=== PATIENT | female | born 1980 | race Caucasian/White ===

== ENCOUNTER 2018-01-03 08:15 | Outpatient (CLI) | payer OTHER | END 2018-01-03 08:16 | disposition home or self-care (01) | LOC: BICMAMMO 08:15 | PROVIDERS: ATTEND Family Medicine | DX: N63.20 Unspecified lump in the left breast, unspecified quadrant (principal); N64.4 Mastodynia | CPT/HCPCS: 77066; G0279 ==

== ENCOUNTER 2019-02-17 19:51 | Observation (INO) | payer SELFPAY ==
[~2019-02-17 19:51] MED LIST: ISOVUE-370 76%-LOCM 1 ML ONE
[2019-02-17 20:13] LABS: #Basophils 0.1 thou/uL (0.0-0.2); #Eosinphils 0.2 thou/uL (0.0-0.7); #Lymphocytes 2.8 thou/uL (1.20-3.40); #Monocytes 1.1 thou/uL (0.11-0.59); #Neutrophils 11.8 thou/uL (1.40-6.50); %Basophils 0.5 % (0.0-1.0); %Lymphocytes 17.6 % (21.0-51.0); %Monocytes 6.6 % (0.0-10.0); %Neutrophils 74.3 % (42.0-75.0); Hemoglobin 14.1 g/dL (12.0-16.0); Mean Corpuscular HGB CONC 34.5 g/dL (32.0-36.0); Mean Corpuscular Hemoglobin 30.9 pg (27.0-31.0); Mean Corpuscular Volume 89.7 fL (78.0-98.0); Mean Platelet Volume 7.1 fL (7.4-10.4); Platelet Count 315 thou/uL (130-400); RBC Distribution Width 12.9 % (11.5-14.5); Red Blood Cell (RBC) Count 4.56 mill/uL (4.20-5.40); White Blood Cell (WBC) Count 15.9 thou/uL (4.8-10.8)
[2019-02-17 20:33] LABS: ALT (SGPT) 32 U/L (8-55); AST (SGOT) 20 U/L (5-34); Albumin 4.2 g/dL (3.5-5.0); Alkaline Phosphatase 73 U/L (40-150); Anion Gap 11 mmol/L (10-20); BUN (Urea Nitrogen) 5 mg/dL (7.0-18.7); Bilirubin, Total 1.3 mg/dL (0.2-1.2); Calc. Creatinine Clearance 0 mL/min (70-130); Calcium 9.3 mg/dL (7.8-10.44); Carbon Dioxide 28 mmol/L (22-29); Chloride 103 mmol/L (98-107); Estimated GFR-MDRD Greater than 90; Glucose 101 mg/dL (70-105); Lipase 12 U/L (8-78); Potassium 3.9 mmol/L (3.5-5.1); Protein, Total 7.2 g/dL (6.0-8.3); Sodium 138 mmol/L (136-145)
[2019-02-17 21:14] LABS: Bilirubin Negative (Negative); Blood, Urine Negative (Negative); Clarity CLEAR (Clear); Glucose, Urine (Dipstick) Negative (Negative); Leukocyte Small (Negative); Nitrite Negative (Negative); Protein, Urine (Dipstick) Trace mg/dL (Neg-Trace); Specific Gravity, Urine 1.024 (1.002-1.036); pH, Urine 7.5 (5.0-9.0)
[2019-02-17 21:15] LABS: Bacteria/HPF None Seen HPF (None Seen); Hyaline Casts/LPF 4-6 HYALINE CAST LPF (0-3 Hyaline); Pathc Cast-AUWi Flag 1.08 (0-2.49)
[2019-02-17 21:17] LABS: Pregnancy Test - Urine (BHCG) Negative (Negative); Pregu Control Background? CLEAR/WHITE (CLR/WHITE); Pregu Control Bar Appear? YES (CONTROL BAR); Specific Gravity 1.024 (1.002-1.036)
[2019-02-17] MEDS ORDERED: Ondansetron PF 4 MG/2 ML Vial ONE (21:19)
[2019-02-17] MEDS ORDERED: Ketorolac Tromethamine 30 MG/ML VIAL ONE (21:19)
--- NOTE | 2019-02-17 22:02 | CT ---
FCT abdomen and pelvis with IV contrast. Oral contrast was not administered. INDICATIONS: Abdominal pain COMPARISON: CT scan abdomen 2009 FINDINGS: Lung bases are clear Liver, spleen, and pancreas appear unremarkable. Stomach and duodenum appear unremarkable. Adrenal glands appear normal. Kidneys appear unremarkable. Collecting structures and urinary bladder appear unremarkable. Small bowel loops are normal caliber and exhibit normal fold pattern. The appendix is mildly enlarged measured at 9 mm. Minimal surrounding inflammatory change. Colon is unremarkable. Aorta is normal caliber. Nonspecific mesenteric lymph nodes are seen in the right lower quadrant. These are measured at 1.0 cm . Uterus is mildly prominent. The endometrial stripe is prominent. There is evidence of an involuting c yst in the right ovary. An adjacent right ovarian cyst measures 2.5 cm. Subcutaneous tissues, abdominal wall, and muscular structures appear unremarkable. Osseous structures appear unremarkable. IMPRESSION: 1. Mid appendix is mildly dilated. There are some minimal inflammatory haziness present. Recommend cl inical correlation as early appendicitis cannot be excluded. 2. Right ovarian cyst. There is a peripherally enhancing involuting cyst in the right ovary also note d.
[2019-02-17] MEDS ORDERED: Piperacillin/Tazobactam 3.375 GM VIAL ONE ×2 (22:14→22:23)
[2019-02-18] MEDS ORDERED: Morphine 4 MG/ML VIAL SLOW IVP PRN (01:20)
[2019-02-18] MEDS: Dextrose 5 %-0.45 % NaCl 1,000 ML IV SCH ×2 (01:38→15:02)
[2019-02-18 02:25] VITALS: BMI 31.8
[2019-02-18] MEDS ORDERED: Ondansetron PF 4 MG/2 ML Vial IVP PRN (04:12)
[2019-02-18] MEDS ORDERED: Ondansetron ODT 4 MG TAB SL PRN (04:12)
[2019-02-18] MEDS ORDERED: Piperacillin/Tazobactam 3.375 GM in Sodium Chloride 0.9% 100 ML IVPB SCH (06:00)
[2019-02-18] MEDS ORDERED: Bupivacaine/Epinephrine 0.25% 30 ML VIAL ONE (07:06)
[2019-02-18] MEDS ORDERED: Fentanyl 100 MCG/2 ML VIAL ONE (08:07)
[2019-02-18] MEDS ORDERED: Lidocaine 1% PF 5 ML VIAL ONE (09:04)
[2019-02-18] MEDS ORDERED: PROPOFOL 200 MG/20 ML VIAL ONE (09:04)
[2019-02-18] MEDS ORDERED: Rocuronium Bromide 10 MG/ML (10ML VIAL) ONE (09:04)
[2019-02-18] MEDS ORDERED: Glycopyrrolate 0.2 MG/ML 5 ML SYRINGE ONE (09:04)
[2019-02-18] MEDS ORDERED: Ketorolac Tromethamine 30 MG/ML VIAL ONE (09:04)
[2019-02-18] MEDS ORDERED: Ondansetron PF 4 MG/2 ML Vial ONE (09:04)
[2019-02-18] MEDS ORDERED: Acetaminophen 500 MG TAB PO PRN (09:43)
[2019-02-18] MEDS ORDERED: traMADol HCl 50 MG TAB PO PRN ×2 (09:43)
[2019-02-18] MEDS ORDERED: Ibuprofen 600 MG TAB PO PRN (09:43)
--- NOTE | 2019-02-18 10:10 | HP ---
HISTORY OF PRESENT ILLNESS: Alena Frances is a 38-year-old female, 2 days of abdominal pain in lower midline localizing right lower quadrant suffered later that day and nausea followed by vomiting and subsequent loose stools. Her pain worsened. She suffered anorexia, increased pain with movement. She presented to the hospital, was evaluated, noted to have a white count of 15, hemoglobin 14, normal comprehensive metabolic profile except a mildly elevated bilirubin 1.3. She underwent a CAT scan of the abdomen and pelvis revealing changes consistent with appendicitis. She was hospitalized overnight, given intravenous antibiotics. She did have a small ovarian cyst right. ALLERGIES: NONE. SOCIAL HISTORY: Tobacco, none. Alcohol, none. MEDICATIONS: Vitamins. PAST SURGICAL HISTORY: C-sections, tubal ligation, laparoscopic cholecystectomy. REVIEW OF SYSTEMS: Noncontributory. [employer]PER[employer]OR [employer] FABRICATION HISTORY: 3, para 3. Her is with her. PHYSICAL EXAMINATION: VITAL SIGNS: Height 5 feet 3 inches, weight 180 pounds, 31 BMI, temperature 98.5 degrees, heart rate 78, blood pressure 113/78. HEAD, EYES, EARS, NOSE, AND THROAT: Unremarkable. LUNGS: Clear to auscultation. CARDIAC: Regular rhythm without murmur or gallop. ABDOMEN: Soft, tenderness in right lower quadrant. No guarding or rebound. EXTREMITIES: Unremarkable. LYMPHATIC: No lymphadenopathy at neck, axillae, or groins. NEUROLOGIC: Neurologically intact. No neurological deficit. SKIN: Turgor normal. ASSESSMENT AND PLAN: Acute appendicitis. Recommend laparoscopic video appendectomy. Risks of infection, bleeding, and reoperation discussed. She consents. Job ID: [id number]
[2019-02-18] MEDS ORDERED: Promethazine HCl 25 MG/ML VIAL SLOW IVP PRN (10:56)
[2019-02-18] MEDS ORDERED: Promethazine HCl 25 MG/ML VIAL IM PRN (10:56)
[2019-02-18] MEDS ORDERED: Ondansetron HCl/PF 4 MG/2 ML Vial IVP PRN (10:56)
--- NOTE | 2019-02-18 12:27 | DIS ---
DATE OF ADMISSION: 02/17/2019 DATE OF DISCHARGE: 02/18/2019 DISCHARGE DIAGNOSIS: Appendicitis. PROCEDURES: CT scan of the abdomen and pelvis in the emergency room, laparoscopic video appendectomy. HISTORY: A 38-year-old female with 2 days history of right lower quadrant pain, presented to the emergency room, had elevated white count. CAT scan confirmed appendicitis. Admitted to the hospital overnight, receiving antibiotics and analgesics, undergoing laparoscopic video appendectomy. Postoperatively, discharged home on Tylenol, Motrin, Ultram p.r.n. pain. Follow up in my office in 2 to 3 weeks. Diet and activity as tolerated. Job ID: [id number]
--- NOTE | 2019-02-18 12:57 | OP ---
DATE OF PROCEDURE: 02/18/2019 PREOPERATIVE DIAGNOSIS: Acute appendicitis. POSTOPERATIVE DIAGNOSIS: Acute appendicitis. PROCEDURE PERFORMED: Laparoscopic video appendectomy. ANESTHESIA: General, local 0.5% Marcaine with epinephrine 30 mL total volume used. DESCRIPTION OF PROCEDURE: The patient was taken to the operating room. Under general anesthesia Restrepo catheter placed at the beginning of the procedure and removed at the end. Because of her previous right subcostal open cholecystectomy, an infraumbilical incision tubal ligation. Pneumoperitoneum to 15 mmHg obtained through a stab incision through the old scar, infraumbilical. Veress needle directed cephalad, securing pneumoperitoneum, placing a 5 mm port and placed another 5 mm port under laparoscopic visualization through the right subcostal scar, port directed caudally missing any adhesions from the open cholecystectomy. Suprapubic incision made and a 12 port placed. Appendix acutely inflamed. Mesoappendix was taken down with the LigaSure. The stump of the appendix divided in the cecal stump with Endo-PERFECTO blue load stapler, removing the appendix, submitted to Pathology. Good hemostasis noted in the stapled cecal stump. Irrigant and pneumoperitoneum evacuated after closing the suprapubic fascia with 0 Vicryl GraNee needle. All skin incisions were approximated with interrupted subdermal 4-0 Monocryl and [place] glue applied. Job ID: [id number]
[2019-02-18 15:58] VITALS: BP 118/82; TEMP 98.2
== END 2019-02-18 18:04 | disposition home or self-care (01) ==
LOC: ERS 19:51 → SJJU 23:27
PROVIDERS: ADMIT Specialist; ATTEND Specialist
PROC: 0DTJ4ZZ Resection of Appendix, Percutaneous Endoscopic Approach (ICD-10-PCS; principal; 2019-02-18)
DX: K35.80 Unspecified acute appendicitis (principal); N83.201 Unspecified ovarian cyst, right side; R63.0 Anorexia; Z68.31 Body mass index [BMI] 31.0-31.9, adult; Z79.899 Other long term (current) drug therapy; Z87.891 Personal history of nicotine dependence
CPT/HCPCS: 36415; 74177; 80053; 81003; 81015; 81025; 83690; 85025; 88304; 96361; 96365; 96366; 96375; G0378; J1885; J2001; J2270; J2405; J2543; J2704; J3010; J7050; Q9966

== ENCOUNTER 2020-12-05 09:28 | Outpatient (CLI) | payer OTHER ==
--- NOTE | 2020-12-05 10:14 | MMO ---
Bilateral MAMMO Bilat Screen [facility]. CLINICAL HISTORY: Patient is 40 years old and is seen for screening. The patient has no family history of breast cancer. The patient has no personal history of cancer. VIEWS: The views performed were: bilateral craniocaudal with tomosynthesis and bilateral mediolateral oblique with tomosynthesis. FILMS COMPARED: The present examination has been compared to a prior imaging study performed at [facility] on 01/03/2018. This study has been interpreted with the assistance of computer-aided detection. MAMMOGRAM FINDINGS: The breasts are heterogeneously dense, which could obscure a lesion on mammography. There are no suspicious masses, suspicious calcifications, or new areas of architectural distortion. IMPRESSION: THERE IS NO MAMMOGRAPHIC EVIDENCE OF MALIGNANCY. A ROUTINE FOLLOW-UP MAMMOGRAM IN 1 YEAR IS RECOMMENDED. THE RESULTS OF THIS EXAM WERE SENT TO THE PATIENT. ACR BI-RADS Category 1 - Negative MAMMOGRAPHY NOTE: 1. A negative mammogram report should not delay a biopsy if a dominant of clinically suspicious mass is present. 2. Approximately 10% to 15% of breast cancers are not detected by mammography. 3. Adenosis and dense breasts may obscure an underlying neoplasm. Reported by: MARTHA ZARATE MD Electonically Signed: [id number]
== END 2020-12-05 09:29 | disposition home or self-care (01) ==
LOC: BICMAMMO 09:28
PROVIDERS: ATTEND Physician Assistant Medical
DX: Z12.31 Encounter for screening mammogram for malignant neoplasm of breast (principal)
CPT/HCPCS: 77063; 77067

== ENCOUNTER 2022-05-18 09:16 | Outpatient (CLI) | payer OTHER | END 2022-05-18 09:17 | disposition home or self-care (01) | LOC: BICMAMMO 09:16 | PROVIDERS: ATTEND Family Medicine | DX: Z12.31 Encounter for screening mammogram for malignant neoplasm of breast (principal) | CPT/HCPCS: 77063; 77067 ==

== ENCOUNTER 2022-05-19 09:34 | Outpatient (CLI) | payer OTHER | END 2022-05-19 09:35 | disposition home or self-care (01) | LOC: BICULT 09:34 | PROVIDERS: ATTEND Student in an Organized Health Care Education/Training Program | DX: N93.9 Abnormal uterine and vaginal bleeding, unspecified (principal); R93.89 Abnormal findings on diagnostic imaging of other specified body structures | CPT/HCPCS: 76856 ==

== ENCOUNTER 2024-10-02 09:10 | Outpatient (CLI) | payer BC | END 2024-10-02 09:11 | disposition home or self-care (01) | LOC: BICMAMMO 09:10 | PROVIDERS: ATTEND Family Medicine | DX: Z12.31 Encounter for screening mammogram for malignant neoplasm of breast (principal) | CPT/HCPCS: 77063; 77067 ==